=== PATIENT | female | born 1985 | race Hispanic/Latino ===

== ENCOUNTER 2016-11-12 11:21 | Outpatient (CLI) | payer MEDICAID ==
[2016-11-12 12:13] VITALS: BP 114/73
== END 2016-11-12 12:45 | disposition home or self-care (01) ==
LOC: TRG 11:21
PROVIDERS: ATTEND Obstetrics & Gynecology
DX: Z34.90 Encounter for supervision of normal pregnancy, unspecified, unspecified trimester (principal); Z3A.00 Weeks of gestation of pregnancy not specified
CPT/HCPCS: 59025

== ENCOUNTER 2016-11-22 21:46 | Outpatient (CLI) | payer MEDICAID ==
[2016-11-22 22:21] VITALS: BP 110/59
[2016-11-22] MEDS ORDERED: VISTARIL PO ONE (23:12)
== END 2016-11-22 23:35 | disposition home or self-care (01) ==
LOC: TRG 21:46
PROVIDERS: ATTEND Obstetrics & Gynecology Gynecology
DX: O77.9 Labor and delivery complicated by fetal stress, unspecified (principal); O47.9 False labor, unspecified; Z3A.00 Weeks of gestation of pregnancy not specified
CPT/HCPCS: Q0177